=== PATIENT | female | born 1950 | race Asian ===

== ENCOUNTER 2016-06-06 19:53 | Emergency (ER) | payer OTHER ==
[~2016-06-06] VITALS: Ht 157.5 cm; Wt 58.2 kg
[~2016-06-06 19:53] MED LIST: ALTOPREV20 MG PO; AMLODIPINE BESY10 MG PO; CALCIUM 500 MG1 EACH PO; CALCIUM 500 WI1 EAC2 PO; KEFLEX500 MG PO; LOPID600 MG PO; LOVASTATIN20 MG PO; PRILOSEC20 MG PO; ZANTAC300 MG PO
[2016-06-06 20:54] LABS: HEMATOCRIT 41.8 % (36.0-46.0); MCHC 34.2 G/DL (30.0-36.0); MCV 84.8 FL (83-99); MEAN PLAT.VOLUME 11.8 uM^3 (9.5-12.4); PLATELET COUNT 131 K/uL (156-360); RBC DIS.WIDTH-SD 42.8 % (39-53); RED BLOOD COUNT 4.93 M/uL (3.80-5.20); WHITE BLOOD COUNT 3.9 K/uL (4.1-10.2)
[2016-06-06 20:58] LABS: ADD MIUA? NO; BILIRUBIN NEGATIVE; BLOOD NEGATIVE; COLOR STRAW ((YELLOW)); GLUCOSE (STRIP) NEGATIVE; KETONES NEGATIVE; LEUKOCYTES NEGATIVE; NITRITE NEGATIVE; PROTEIN (STRIP) NEGATIVE; SPECIFIC GRAVITY 1.009 (1.000-1.030); UCUL ADDED? NO; UROBILINOGEN 0.2 MG/DL (0.2-1.0)
[2016-06-06 21:14] LABS: ANION GAP 10 MEQ/L (2-14); CHLORIDE 104 MEQ/L (99-109); POTASSIUM 3.7 MEQ/L (3.7-5.4); SAMPLE HEMOLYSIS CHECK 0; SAMPLE ICTERIC CHECK 0; SAMPLE LIPEMIA CHECK 0; SODIUM 140 MEQ/L (136-147); TOTAL BILIRUBIN 0.3 MG/DL (0.0-1.0)
[2016-06-06 21:20] LABS: ALKALINE PHOSPHATASE 110 IU/L (3-129); GFR ESTIMATE (CALCULATED) > 59 mL/min/; GLUCOSE 114 mg/dL (70-99); UREA NITROGEN (BUN) 10 mg/dL (9-23)
[2016-06-07 00:18] LABS: INFLUENZA A VIRAL ANTIGEN NEGATIVE; INFLUENZA B VIRAL ANTIGEN NEGATIVE
[2016-06-07] MEDS ORDERED: MOTRIN600 MG PO (01:16)
[2016-06-07] MEDS ORDERED: ZOFRAN4 MG PO (01:16)
[2016-06-07] MEDS ORDERED: MIRALAX255 GM PO (01:30)
[2016-06-07 01:44] VITALS: BP 138/81
== END 2016-06-07 01:45 | disposition home or self-care (01) ==
LOC: EME 19:53
PROVIDERS: Physician Assistant
DX: R10.32 Left lower quadrant pain (principal); R10.31 Right lower quadrant pain; R11.0 Nausea; R50.9 Fever, unspecified; E78.5 Hyperlipidemia, unspecified
CPT/HCPCS: 74177; 80053; 81003; 83605; 85027; 87040; 87502; 99281; 99285; J2405; J7030